=== PATIENT | female | born 1965 | race Caucasian/White ===

== ENCOUNTER 2017-01-22 06:25 | Day surgery (SDC) | payer BC, OTHER ==
[~2017-01-22 06:25] MED LIST: COMPOUNDED TROCHE SL; COZ25 PO; DIL2TAB PO; DSS PO; EEMT HS PO; GLUCOPHAGE1000 MG PO; JANUMET1 TAB PO; JANUVIA100 MG PO; KAPIDEX60 MG PO; LORT7 PO; MAX25 PO; MEDROLPAK4 PO; METHOC750B PO; MONODOX100 MG PO; NEUR300 PO; NORCO1 TA1 PO; NOVOLOG SC; P20 PO; PCET PO; PRILOSEC OTC20 MG PO; PRILOSEC40 MG PO; RESTLESS LEGS SL; TRESIBA FL100 UNIT/1 SC; TRESIBA INSULIN SC; ULTRAM50 PO; V2 PO; VICTOZA18 MG/3 ML SC; ZANAFLEX 4 MG TA4 MG PO; ZOFRAN4 PO; ZYRTEC ALLGY10 MG PO; [UNRECOGNIZED DRUG - MIXTURE] PO
[2017-02-01] MEDS ORDERED: PLAVIX PO (13:35)
[2017-02-02] MEDS ORDERED: AMITIZA8 MCG PO (06:59)
[2017-07-01] MEDS ORDERED: HCTZ25B PO (16:33)
[2017-07-01] MEDS ORDERED: VITC500 PO (16:34)
[2017-07-01] MEDS ORDERED: JARDI25B PO (16:34)
== END 2017-01-22 09:11 | disposition home or self-care (01) ==
LOC: SDC 06:25
PROVIDERS: Orthopaedic Surgery
PROC: 3E0S33Z Introduction of Anti-inflammatory into Epidural Space, Percutaneous Approach (ICD-10-PCS; 2017-01-22)
PROC: B01BZZZ Fluoroscopy of Spinal Cord (ICD-10-PCS; 2017-01-22)
PROC: 3E0S3BZ Introduction of Anesthetic Agent into Epidural Space, Percutaneous Approach (ICD-10-PCS; principal; 2017-01-22 08:30)
DX: M54.16 Radiculopathy, lumbar region (principal); M19.90 Unspecified osteoarthritis, unspecified site; E11.9 Type 2 diabetes mellitus without complications; G47.30 Sleep apnea, unspecified; K57.90 Diverticulosis of intestine, part unspecified, without perforation or abscess without bleeding; K21.9 Gastro-esophageal reflux disease without esophagitis; K64.9 Unspecified hemorrhoids; H26.9 Unspecified cataract; Z88.8 Allergy status to other drugs, medicaments and biological substances; Z91.048 Other nonmedicinal substance allergy status; Z79.4 Long term (current) use of insulin; Z79.899 Other long term (current) drug therapy; Z99.89 Dependence on other enabling machines and devices; Z98.1 Arthrodesis status; Z90.49 Acquired absence of other specified parts of digestive tract; Z98.84 Bariatric surgery status; Z98.890 Other specified postprocedural states; Z90.710 Acquired absence of both cervix and uterus
CPT/HCPCS: 82962; J1040; J2250; J3010; Q9967